=== PATIENT | female | born 1935 | race Caucasian/White ===

== ENCOUNTER → 2016-06-26 | Outpatient (CLI) | payer MEDICARE, OTHER ==
[~2016-06-26] MED LIST: ASA CHILDREN'S81 MG PO; CALTRATE-600 W600 MG PO; CELEXA20 MG PO; COQ-1030 MG PO; FOSAMAX70 MG PO; HYDRODIURIL-DPS25 MG PO; KLOR-CON M2020 ME1 PO; LEVAQUIN DPS500 MG PO; LOPRESSOR DPS12.5 MG PO; MELATONIN5 M2 PO; PLAVIX75 MG PO; PRAVACHOL40 MG PO; PRILOSEC DPS20 MG PO; PROBIOTIC1 EAC1 PO; SYMBICORT160 MCG/6 IH; SYNTHROID100 MCG PO
== END | disposition home or self-care (01) ==
LOC: RESC 07:55 → PTH.S 08:00
DX: R05 Cough (principal); R06.00 Dyspnea, unspecified; R09.02 Hypoxemia; R06.83 Snoring; Z87.81 Personal history of (healed) traumatic fracture

== ENCOUNTER → 2016-08-13 | Outpatient (CLI) | payer MEDICARE, OTHER ==
--- NOTE | 2016-08-16 15:48 | SS ---
ADMIT: 08/13/2016 RM/LOC: [facility] MR#: [id number] [facility] [address] [place], [place] [id number] AMA DURAN [address] [place] [address] Sleep Study SEX: F AGE: 80 : 1935 STUDY DATE: 08/13/2016 REFERRING PHYSICIAN: Chuy Hwang MD CLINICAL HISTORY: A 80-year-old female, body mass of 28.4, 62 inches tall, 154 pounds, symptoms of snoring and hypersomnia, in the sleep lab for evaluation of obstructive sleep apnea. TECHNICAL DESCRIPTION: Diagnostic polysomnogram performed on night of 08/13/2016, attended by a trained certified hyperbaric technologist. DIAGNOSTIC POLYSOMNOGRAM FINDINGS: SLEEP: Total time in bed is 448 minutes, total sleep time 372 minutes, sleep efficiency 83%. 44.3% hours spent in stage II sleep, 24.2% hours spent in stage REM. BREATHING: Fato-fs-lcbpawhj obstructive sleep apnea with apnea-hypopnea 10.3. Supine apnea-hypopnea 17.1. During the study, there were 13 central apneas, 7 mixed apneas, 25 obstructive apneas, and 19 obstructive hypopneas noted. OXYGEN SATURATION: Mean sleeping oxygen saturation is 89%. 55.2% hours spent in saturating 80% to 89%. CARDIAC: Average heart rate 56 beats per minute. MOVEMENTS/POSITION: During the study, the patient slept in supine lateral position with no significant leg movements. IMPRESSION/PLAN: Yigd-in-bgtudkzh obstructive sleep apnea with apnea-hypopnea 10.3. Recommend CPAP titration. Recommend losing weight. Recommend avoiding sedative and alcohol. Recommend refrain from driving if excessively sleepy. Clinical correlation needed. CPAP titration is recommended. Toan Sesay MD/ tacho JOB #: [id number] CC: Seamus Kay MD, Attending Physician Ludwig Hayden DO, Family Physician Seamus Kay MD
== END | disposition home or self-care (01) ==
LOC: RESC 20:15
DX: G47.10 Hypersomnia, unspecified (principal); R06.83 Snoring; G47.33 Obstructive sleep apnea (adult) (pediatric)